=== PATIENT | female | born 1985 | race Caucasian/White ===

== ENCOUNTER 2017-12-27 07:45 | Emergency (ER) | payer OTHER ==
[~2017-12-27] VITALS: Ht 157.5 cm; Wt 84.0 kg
[2017-12-27 07:53] VITALS: BP 145/63; PULSE 74; RESP 16; TEMP 98.1; O2SAT 98
--- NOTE | 2017-12-27 08:31 | PD ---
HPI Chief Complaint: Injury Time Seen by Provider: 07:59 Travel History International Travel<30 days: No Contact w/Intl Traveler<30days: No Traveled to known affect area: No History of Present Illness HPI 32-year-old female patient presents emergency department status post trip and fall last evening. Patient states she was carrying her sleeping daughter from the couch to her bedroom, when she tripped and fell injuring her left lateral foot and ankle. She states increased pain over the evening with increased swelling noted. There is no abrasions or open wounds. Patient is unable to bear weight without significant difficulty. She has no numbness or tingling. She denies any other injury. Pain is 8 out of 10. She has no known drug allergies. [facility] Past Medical History Medical History: Denies Significant Hx Influenza Vaccination: No ?: Not Tubal Ligation: Yes Past Surgical History Surgical History: No Previous Surgery Social History Alcohol Use: No Tobacco Use: Yes (10/30 PPD) Substance Use: No Allergies-Medications (Allergen,Severity, Reaction): Coded Allergies: No Known Allergies (Unverified , 12/27/17) Review of Systems Except as stated in HPI: all other systems reviewed are Neg General / Constitutional: No: Fever Eyes: No: Visual changes HENT: No: Headaches Cardiovascular: No: Chest Pain or Discomfort Respiratory: No: Shortness of Breath Gastrointestinal: No: Abdominal Pain Genitourinary: No: Dysuria Musculoskeletal: Positive: Arthralgias, Limited ROM, Pain Skin: No Rash Neurologic: No: Weakness Psychiatric: No: Depression Endocrine: No: Polydipsia Hematologic/Lymphatic: No: Easy Bruising Physical Exam Narrative GENERAL: Patient appears in mild distress. SKIN: Warm and dry. Normal color. Normal turgor. HEAD: Atraumatic. Normocephalic. EYES: Pupils equal and round. No scleral icterus. No injection or drainage. ENT: No nasal bleeding or discharge. Mucous membranes pink and moist. Pharynx is clear. NECK: Trachea midline. Supple. CARDIOVASCULAR: Regular rate and rhythm. RESPIRATORY: No accessory muscle use. Clear to auscultation. Breath sounds equal bilaterally. MUSCULOSKELETAL: Extremities without clubbing, cyanosis, or edema. Patient has swelling over the right lateral malleolus as well as dorsal lateral foot. Patient has tenderness with palpation to this area as well. No crepitus is noted. Neurovascular exam is normal. Pain is mainly in the foot versus the ankle. X-rays of both are ordered of both right foot and right ankle. NEUROLOGICAL: Awake and alert. No obvious cranial nerve deficits. Motor grossly within normal limits. Five out of 5 muscle strength in the arms and legs. Normal speech. PSYCHIATRIC: Appropriate mood and affect; insight and judgment normal. Data Data Last Documented VS Vital Signs Date Time Temp Pulse Resp B/P (MAP) Pulse Ox O2 Delivery O2 Flow Rate FiO2 12/27/17 08:00 Room Air 12/27/17 07:53 98.1 74 16 145/63 (90) 98 Orders Orders Ankle, Complete (Oxi4ieu) (12/27/17 08:13) Foot, Complete ([id number]) (12/27/17 08:13) Ice/Cold Pack (12/27/17 08:13) [facility] Medical Decision Making Medical Screen Exam Complete: Yes Emergency Medical Condition: Yes Differential Diagnosis Right foot fracture. Right foot sprain. Right ankle sprain. Right ankle fracture Narrative Course X-rays of the right foot and ankle are ordered. Ice pack is placed on the right foot and ankle. X-rays show no acute fractures to either foot or ankle. Patient is placed in Jose bandage and ankle stirrup splint. Patient is given crutches to use as needed until symptoms improve. Patient is given ibuprofen 800 mg 3 times daily #30. Patient should ice the area frequently. Patient to follow with primary care physician or return if symptoms persist. Diagnosis Primary Impression: Sprain of right foot Qualified Codes: S93.601A - Unspecified sprain of right foot, initial encounter Additional Impression: Moderate right ankle sprain Qualified Codes: S93.401A - Sprain of unspecified ligament of right ankle, initial encounter Patient Instructions: Ankle Sprain (ED), Ankle Sprain Exercises (GEN), Foot Sprain (ED), General Instructions Additional Instructions: X-rays show no acute fractures to either foot or ankle. Patient is placed in Jose bandage and ankle stirrup splint. Patient is given crutches to use as needed until symptoms improve. Patient is given ibuprofen 800 mg 3 times daily #30. Patient should ice the area frequently. Patient to follow with primary care physician or return if symptoms persist. Med/Other Pt SpecificInfo: Prescription(s) given Disposition: 01 DISCHARGE HOME Condition: Stable Miko Mckeon Dec 27, 2017 08:31
--- NOTE | 2017-12-27 08:48 | RADRPT ---
EXAM DATE/TIME: 12/27/2017 08:35 [facility] COMPARISON: No previous studies available for comparison. INDICATIONS : Right foot pain. Twisted foot lastnight. MEDICAL HISTORY : None. SURGICAL HISTORY : None. ENCOUNTER: Initial ACUITY: 1 day PAIN SCORE: 5/10 LOCATION: Right foot. FINDINGS: Three view examination of the right foot demonstrates no soft tissue swelling, dislocation, or fractu re. The tarsal bones appear intact. The interphalangeal and metatarsophalangeal joints are intact. The calcaneus is intact. Bony mineralization is normal. CONCLUSION: Unremarkable examination of the right foot. Hans Stapleton MD on December 27, 2017 at 8:47 Board Certified Radiologist. This report was verified electronically.
--- NOTE | 2017-12-27 08:48 | RADRPT ---
EXAM DATE/TIME: 12/27/2017 08:37 [facility] COMPARISON: No previous studies available for comparison. INDICATIONS : Right ankle pain. Twisted ankle lastnight. MEDICAL HISTORY : None. SURGICAL HISTORY : None. ENCOUNTER: Initial ACUITY: 1 day PAIN SCORE: 5/10 LOCATION: Right ankle. FINDINGS: Three view exam was performed of the right ankle. There is a 9 x 3 mm osteochondral fracture involve the medial talar dome which I believe is chronic. The margins are quite sclerotic. There does appear to be a small loose body but is nondisplaced. The ankle mortise is intact. No radiopaque foreign bod ies are seen. Bony mineralization is normal. CONCLUSION: No acute injury is noted however there is a chronic appearing 9 x 3 mm osteochondral lesion of the me dial talar dome. Hans Stapleton MD on December 27, 2017 at 8:46 Board Certified Radiologist. This report was verified electronically.
[2017-12-27] MEDS ORDERED: IBUP1TAB7 PO (08:54)
[2017-12-27] MEDS ORDERED: IBUPROFEN 800 MG TAB PO ONE (09:00)
== END 2017-12-27 09:25 | disposition home or self-care (01) ==
LOC: NEPD 07:45
DX: S93.601A Unspecified sprain of right foot, initial encounter (principal); S93.401A Sprain of unspecified ligament of right ankle, initial encounter; W01.0XXA Fall on same level from slipping, tripping and stumbling without subsequent striking against object, initial encounter; Y93.89 Activity, other specified
CPT/HCPCS: 73610; 73630; 99283; E0113; L1906